=== PATIENT | male | born 1990 | race Caucasian/White ===

== ENCOUNTER 2016-10-13 16:13 | Emergency (ER) | payer OTHER ==
[~2016-10-13] VITALS: Ht 175.3 cm; Wt 68.9 kg
[~2016-10-13 16:13] MED LIST: IBUP200C62 PO; NO ROUTINE MEDS
[2016-10-13 16:17] VITALS: Ht 175.3 cm; Wt 68.9 kg
--- OUTSIDE RECORDS SUMMARY | 2016-10-13 16:17 | XMS REPORT | Continuity of Care Document ---
Author Author [facility] Organization [facility] Address Unknown Phone Unavailable Support Name Relationship Address Phone CRISPIN WING MD Caregiver [address] [place] [address] Unavailable RADHA GARCIA Next Of Kin [address] [place] [address] Insurance Providers Guarantor Gabe Foreman Address [address] [place] [address] Email DENIED/NO TO PT PORT Payer Self Pay Subscriber's Name Gabe Foreman Relationship 18 Self Chief Complaint and Reason for Visit Chief Complaint Upper Extremity Injury Reason for Visit [id number] Problems Active Problems Medical Problem Onset Date Status Concern about STD in male without diagnosis Unknown Acute Concern about STD in male without diagnosis Unknown Acute Facial pain Unknown Acute Facial pain Unknown Acute Gonorrhea Unknown Acute Sinusitis Unknown Acute Sore of penis Unknown Acute UTI (urinary tract infection) Unknown Acute Past Problems Medical Problem Onset Date Fracture, hamate Unknown Medications Current Home Medications Medication Dose Units Route Directions Days Qty Instructions Start Date Ibuprofen 200 Mg Capsule 2 Cap Oral Every 4 Hours as needed for Pain 01/12/16 No Routine Meds 10/31/15 Social History Social History Problem Response Recorded Date/Time Onset Date Status Hx Substance Use Y MARIJAUNA 01/12/2016 6:31pm Not Applicable Not Applicable Hx Alcohol Use Y WEEKLY 01/12/2016 6:31pm Not Applicable Not Applicable Tobacco Usage smoke 11/01/2015 11:51pm Not Applicable Not Applicable Query Response Start Date Stop Date Smoking Status Current every day smoker Hospital Discharge Instructions No hospital discharge instructions. Plan of Care Discharge Date 01/12/16 7:48pm Disposition 01 DISCHARGED HOME, SELF-CARE Condition at Discharge Improved Instructions/Education Provided DI for Wrist Fracture Prescriptions See Medication Section Referrals MARK PITTS Address: [facility] [address] [place] [phone] Additional Instructions/Education Keep splint in place, clean, and dry at all times Tylenol up to 1000 mg 4 times daily as needed for pain May use ice pack to the injury for pain as well See orthopedic clinic Sunday morning at 8:30 to see Mark. Care Plan and Goals Physician Care Plan Problem: Dorsal hamate fracture Goal: Follow up with primary care provider Instructions: Take medications and follow care plan as discussed/written Keep splint in place, clean, and dry at all times Tylenol up to 1000 mg 4 times daily as needed for pain May use ice pack to the injury for pain as well See orthopedic clinic Sunday morning at 8:30 to see Mark. Functional Status No functional status results. Allergies, Adverse Reactions, Alerts No known allergies. Immunizations Query Response on File Recorded Date/Time Influenza Vaccine Hx NO 01/12/16 6:31pm Tdap Vaccine Hx NO BROKEN SKIN 01/12/16 6:34pm Vital Signs Acute Vital Signs Vital Response Date/Time Temperature (Fahrenheit) 97.7 deg F (96.8 - 99.1) 01/12/2016 7:48pm Temperature (Calculated Celsius) 36.64885 degrees C (36.0 - 37.3) 01/12/2016 7:48pm Pulse Rate (adult) 95 bpm (60 - 100) 01/12/2016 7:48pm Respiratory Rate 18 breaths/min (10 - 20) 01/12/2016 7:48pm O2 Sat by Pulse Oximetry 98 % (90 - 100) 01/12/2016 7:48pm Blood Pressure 104/58 mm Hg 01/12/2016 7:48pm Height (Feet) 5 feet 01/12/2016 6:16pm Height (Inches) 10.00 inches 01/12/2016 6:16pm Weight (Kilograms) 68.000 kg 01/12/2016 6:16pm Body Mass Index (BMI) 21.0 01/12/2016 6:16pm Results Laboratory Results Test Name Result Units Flags Reference Collection Date/Time Result Date/ Time Comments N. gonorrhoeae DNA Specimen Source URINE 10/31/2015 4:13pm 2015 6:27pm Urine Collection Type VOIDED-NOT CC-MIDSTR 10/31/2015 4:13pm 2015 4:28pm Urine Color ORANGE YELLOW 10/31/2015 4:13pm 10/31/2015 4:28pm Urine Turbidity SL CLOUDY CLEAR 10/31/2015 4:13pm 10/31/2015 4:28pm Urine Specific [place] 1.025 1.015-1.025 10/31/2015 4:13pm 2015 4:28pm Urine pH 5.0 5.0-8.0 10/31/2015 4:13pm 10/31/2015 4:28pm Urine Leukocyte Esterase INCONCL DUE TO COLOR NEGATIVE 10/31/2015 4: 13pm 10/31/2015 4:28pm Urine Nitrite INCONCL DUE TO COLOR NEGATIVE 10/31/2015 4:13pm 2015 4:28pm Urine Protein INCONCL DUE TO COLOR NEGATIVE 10/31/2015 4:13pm 2015 4:28pm Urine Glucose (UA) INCONCL DUE TO COLOR NEGATIVE 10/31/2015 4:13pm 4:28pm Urine Ketones INCONCL DUE TO COLOR NEGATIVE 10/31/2015 4:13pm 2015 4:28pm Urine Urobilinogen INCONCL DUE TO COLOR EU/DL NORMAL 10/31/2015 4:13pm 10/31/2015 4:28pm Urine Bilirubin INCONCL DUE TO COLOR NEGATIVE 10/31/2015 4:13pm 10/30 4:28pm Urine Blood INCONCL DUE TO COLOR NEGATIVE 10/31/2015 4:13pm 2015 4:28pm Urine WBC 20-30 /HPF H 0-5 10/31/2015 4:13pm 10/31/2015 4:35pm Urine RBC 0-1 /HPF 0-3 10/31/2015 4:13pm 10/31/2015 4:35pm Urine Bacteria TRACE H NEGATIVE 10/31/2015 4:13pm 10/31/2015 4:35pm Procedures Procedure Status Date Provider(s) THER/PROPH/DIAG INJ SC/IM Completed 10/31/15 Encounters Encounter Location Arrival/Admit Date Discharge/Depart Date Attending Provider Departed Emergency Room [facility] 01/12/16 6:16pm 01/12/16 7: 48pm CRISPIN WING MD Departed Emergency Room [facility] 10/31/15 2:25pm 10/31/15 7: 17pm JHONATHAN TOTH MD Recent Diagnosis
--- OUTSIDE RECORDS SUMMARY | 2016-10-13 16:17 | XMS REPORT | Continuity of Care Document ---
Author Author [facility] Organization [facility] Address Unknown Phone Unavailable Support Name Relationship Address Phone ANA OLSON DO Caregiver [facility] [address] [place] [address] RADHA GARCIA Next Of Kin [address] [place] [address] Insurance Providers Payer Name Policy Number Subscriber Name Relationship Self Pay Gabe Foreman 20 Self Problems Medical Problems Problem Onset Date Status Facial pain Unknown Active Sinusitis Unknown Active Facial pain Unknown Active Concern about STD in male without diagnosis Unknown Active UTI (urinary tract infection) Unknown Active Concern about STD in male without diagnosis Unknown Active Medications Medication Dose Route Sig Days/Qty Instructions Order Date Discontinued Date Status [No Daily Meds] 03/03/14 Active Cephalexin 1 Cap PO THREE TIMES A DAY For Dysuria 10 Days 04/19/14 Active Phenazopyridine HCl 200 Mg PO AFTER MEALS For dysuria 9 Qty Take 1 tab, by mouth, 3 times a day AFTER meals. 04/19/14 Active Social History Social History Problem Response Recorded Date/Time Smoking Status Current every day smoker 04/18/2014 10:19pm When did patient START smoking? 13-14 YEARS OLD 04/18/2014 10:19pm Hx Substance Use Y MARIJAUNA 04/18/2014 10:19pm Hx Alcohol Use Y WEEKLY 04/18/2014 10:19pm Hospital Discharge Instructions No hospital discharge instructions. Plan of Care No plan of care. Functional Status Query Response Date Recorded Physical Hygiene Self April 18, 2014 10:19pm Disabilities None April 18, 2014 10:19pm Devices Used None April 18, 2014 10:19pm Dressing Self April 18, 2014 10:19pm Ambulation Self April 18, 2014 10:19pm Diet Self April 18, 2014 10:19pm Mental Status Alert Oriented April 18, 2014 10:19pm Disabilities None April 18, 2014 10:19pm Devices Used None April 18, 2014 10:19pm Physical Hygiene Self April 18, 2014 10:19pm Dressing Self April 18, 2014 10:19pm Ambulation Self April 18, 2014 10:19pm Diet Self April 18, 2014 10:19pm Allergies, Adverse Reactions, Alerts Allergen Type Severity Reaction Status Last Updated No Known Allergies Active 04/18/14 Immunizations No immunization records. Vital Signs Acute Vital Signs Vital Response Date/Time Temperature (Fahrenheit) 98.6 deg F (96.8 - 99.1) Temperature (Calculated Celsius) 37.19012 degrees C (36.0 - 37.3) Pulse Rate (adult) 101 bpm (60 - 100) Respiratory Rate 18 breaths/min (10 - 20) O2 Sat by Pulse Oximetry 99 % (90 - 100) Blood Pressure 115/67 mm Hg Height (Feet) 5 feet Height (Inches) 9 inches Weight (Kilograms) 62 kg Body Mass Index (BMI) 20.0 Results Test Source Date Result Interp. Ref. Range Comments Urine Bacteria April 18, 2014 10:32pm 1+ H - Has specimen been collected/obtained? Y Urine RBC April 18, 2014 10:32pm Tntc /HPF - Has specimen been collected/obtained? Y Urine WBC April 18, 2014 10:32pm 30-50 /HPF H - Has specimen been collected/obtained? Y Urine Blood April 18, 2014 10:32pm 3+ H - Has specimen been collected/obtained? Y Urine Bilirubin April 18, 2014 10:32pm Negative - Has specimen been collected/obtained? Y Urine Urobilinogen April 18, 2014 10:32pm 0.2 EU/DL - Has specimen been collected/obtained? Y Urine Ketones April 18, 2014 10:32pm Negative - Has specimen been collected/obtained? Y Urine Glucose (UA) April 18, 2014 10:32pm Negative - Has specimen been collected/obtained? Y Urine Protein April 18, 2014 10:32pm 1+ H - Has specimen been collected/obtained? Y Urine Nitrite April 18, 2014 10:32pm Negative - Has specimen been collected/obtained? Y Urine Leukocyte Esterase April 18, 2014 10:32pm 2+ H - Has specimen been collected/obtained? Y Urine pH April 18, 2014 10:32pm 6.0 - Has specimen been collected /obtained? Y Urine Specific [place] April 18, 2014 10:32pm >=1.030 H - Has specimen been collected/obtained? Y Urine Turbidity April 18, 2014 10:32pm Cloudy - Has specimen been collected/obtained? Y Urine Color April 18, 2014 10:32pm Red - Has specimen been collected/obtained? Y Urine Collection Type April 18, 2014 10:32pm Cleancatch-midstream - Has specimen been collected/obtained? Y Name: GABE FOREMAN Unit #: [id number] : 1990 Sex: M Loc / Svc: ED DOS: 03/03/14 Signed Report #: [id number] DIAGNOSTIC IMAGING REPORT TYPE OF EXAM: CT MAXILLOFACIAL W/O CONTRAST Dictated By: NAVID CUADRA MD INDICATION: ITS.REASON: facial pain (nose) struck in face 1 week ago ^facial pain (nose) struck in face 1 week ago COMPARISON: none. CT MAXILLOFACIAL W/O CONTRAST: Transverse, coronal, sagittal imaging. There is mucosal thickening in the sphenoid, ethmoid, maxillary sinuses that appears to be chronic sinusitis. There is nasal septal deviation. No evidence of a fracture. Mandible, zygomatic arches, and and orbits appear intact. No evidence of a nasal bone fracture. IMPRESSION: No evidence of a fracture. Evidence of chronic sinusitis. . Procedures No known history of procedures. Encounters Encounter Location Date/Time Registered Emergency Room [facility] 04/18/14 9:58pm Departed Emergency Room [facility] 03/03/14 2:07pm Recent Diagnosis
--- NOTE | 2016-10-13 16:24 | NUR ---
DR DR DEAN AT BEDSIDE.
--- OUTSIDE RECORDS SUMMARY | 2016-10-13 16:27 | XMS REPORT | Continuity of Care Document ---
Author Author [facility] Organization [facility] Address Unknown Phone Unavailable Support Name Relationship Address Phone ANA OLSON DO Caregiver [facility] [address] [place] [address] RADHA GARCIA Next Of Kin [address] [place] [address] Insurance Providers Payer Name Policy Number Subscriber [...] F (96.8 - 99.1) Temperature (Calculated Celsius) 37.69808 degrees C (36.0 - 37.3) Pulse Rate [...] specimen been collected /obtained? Y Urine Specific [place] April 18, 2014 10:32pm >=1.030 H - Has specimen been collected/obtained? Y Urine Turbidity April 18, 2014 10:32pm Cloudy - Has specimen been collected/obtained? Y Urine Color April 18, 2014 10:32pm Red - Has specimen been collected/obtained? Y Urine Collection Type April 18, 2014 10:32pm Cleancatch-midstream - Has specimen been collected/obtained? Y Name: GABE FOREMAN Unit #: [id number] : 1990 Sex: M Loc / Svc: ED DOS: 03/03/14 Signed Report #: [id number] DIAGNOSTIC IMAGING REPORT TYPE OF EXAM: CT [...] Encounters Encounter Location Date/Time Registered Emergency Room [facility] 04/18/14 9:58pm Departed Emergency Room [facility] 03/03/14 2:07pm Recent Diagnosis
--- NOTE | 2016-10-13 16:30 | NUR ---
XRY PORTABLE XRY AT BEDSIDE.
--- NOTE | 2016-10-13 16:44 | DI ---
Indication: ITS.REASON: pain, injury PROCEDURE: FOOT LEFT 3 VIEWS: Encounter: Initial Comparison: None Findings: There is no acute fracture, dislocation or malalignment identified. Impression: No acute osseous abnormality. .
--- NOTE | 2016-10-13 16:45 | DI ---
Indication: ITS.REASON: pain, injury PROCEDURE: ANKLE LEFT 3 VIEW: Encounter: Initial Comparison: None Findings: There is no acute fracture, dislocation or malalignment identified. Impression: No acute osseous abnormality. .
[2016-10-13] MEDS ORDERED: NAPR500T PO (17:05)
[2016-10-13] MEDS ORDERED: HYDR-4246 PO (17:05)
--- NOTE | 2016-10-13 17:05 | ERPDOC ---
Departure Disposition Decision Date: Oct 13, 2016 Disposition Decision Time: 17:03 Disposition: 01 DISCHARGED HOME, SELF-CARE Impression Impression Impression: Primary Impression: Sprain of foot Encounter type: initial encounter Laterality: unspecified laterality Qualified Codes: S93.609A - Unspecified sprain of unspecified foot, initial encounter Additional Impression: Ankle sprain Encounter type: initial encounter Involved ligament of ankle: unspecified ligament Laterality: unspecified laterality Qualified Codes: S93.409A - Sprain of unspecified ligament of unspecified ankle, initial encounter Severity: Mild Condition: Improved Seen By: Physician only Referrals: [facility] 2 Days Patient Instructions: Ankle Sprain (ED), Foot Sprain (ED) Problems/Meds/Labs Reviewed?: Yes Medications reviewed and manag: Yes Follow up care ordered?: Yes Mental Status: Alert, Oriented Scripts Naproxen (Naprosyn) 500 Mg Tablet 1 TAB PO BID Y for PAIN for 10 Days, #20 TAB 0 Refills Prov: JONATHAN DEAN DO 10/13/16 Hydrocodone/Acetaminophen ([place] 5-325 Tablet) 5-325 Tablet 1 TAB PO Q4HR Y for PAIN for 2 Days, #12 TAB 0 Refills Prov: JONATHAN DEAN DO 10/13/16 HPI - Lower Extremity General Chief Complaint: Lower Extremity Injury Stated Complaint: INJURED ANKLE Time Seen by Provider: 16:17 Source: patient Exam Limitations: no limitations HPI - Lower Extremity Initial Comments 26-year-old male presents to the emergency department with a chief complaint of an injury to his left foot and ankle. Injury occurred immediately prior to arrival to the emergency department today. Patient was at work when he stepped on another employees foot and twisted his foot and ankle. Patient notes a moderate dull aching pain in the left foot and ankle without radiation. Patient denies any other complaints or associated symptoms. No other injuries. Patient was at work when the symptoms began. Symptoms have been persistent in nature since onset. Patient notes that the pain increases with ambulation and improves with rest and positioning. Allergies: Coded Allergies: No Known Allergies (Unverified , 04/18/14) Past History Past Medical History Pt denies signifigant PMH Hx Echocardiogram: No Surgical History Denies Surgeries Family History Family History: Negative Family PMH: FOUND: other Social History Smoking Status: Current some day smoker Substance Use Type: does not use Alcohol Intake: none Sexuality: female partner Review of Systems Constitutional Constitutional: DENIES: chills, fever Eyes General: DENIES: erythema, exudate Lids/Accessories: DENIES: erythema, swelling Vision: DENIES: acuity, blurring ENMT Ears: DENIES: drainage, erythema Hearing: DENIES: hearing loss Balance: DENIES: ataxia, falling to one side Sinuses: DENIES: congestion, pain Nose: DENIES: nosebleeds, pain Mouth/Throat: DENIES: painful swallowing, sore throat Teeth: DENIES: pain Jaw: DENIES: pain Cardiovascular Cardiac: DENIES: chest pain, dyspnea on exertion Rhythm/Rate: DENIES: irregular beat, palpitations Vascular: DENIES: pedal edema, unilateral swelling Pulmonary Respiratory: DENIES: cough, dyspnea, pleuritic chest pain, sputum GI Upper Abdomen: DENIES: nausea, pain, vomiting Lower Abdomen: DENIES: diarrhea, pain General: DENIES: dysuria, pain Musculoskeletal General: joint pain, tenderness Neurological General: DENIES: headache, numbness, weakness Psychiatric Psychiatric: DENIES: emotional instability, suicidal ideation/attempt Endocrine Endocrine: DENIES: polydipsia, polyphagia Hematologic/Lymphatic Hematologic/Lymphatic: DENIES: frequent nosebleeds, lymphadenopathy Allergic/Immunological Allergic/Immunoligical: DENIES: allergic reactions, hives Physical Exam General General Nourishment: well nourished, well developed, appears stated age, no acute distress, adult General Body Habitus: well groomed Vitals and Pain First Documented Vital Signs Date Time Temp Pulse Resp B/P Pulse Ox O2 Delivery O2 Flow Rate FiO2 10/13/16 16:17 98.1 88 16 135/90 99 Room Air Weight: Kilograms: 68.900 Height (feet): 5 Height (inches): 9.00 Triage Pain Scale: RN VS reviewed by Provider: Yes Normal Exams: Head: Normocephalic w/o trauma Eyes: Pupils are PERRLA w/ EOMI, No scleral icterus, irritation, or foreign bodies noted ENMT: No facial trauma, nasal exudates, pharyngeal erythema, or exudates are noted Dental: No fractured, loose, or missing teeth noted Neck: Full range of motion, without adenopathy, JVD, bruits or thyromegaly Chest/Resp: Clear all ariza, with good airflow, and symmetry bilaterally CV: Regular rate and rhythm, without murmur or gallop, Pulses 2+ all extremities, capillary refill, <2 seconds all ext., no pedal edema noted Abdomen: Bowel sounds positive, soft, non-tender, non-distended, no hepatosplenomegaly, masses or bruits noted Lymphatic: No lymphadenopathy, or lymphedema noted Integumentary: No rashes, hives, or bruising noted, hair and nails, without abnormality Neurologic: Patient is alert, and oriented, cranial nerves, motor/sensory/ cerebellar, exams w/o gross deficits, to observation Psychiatric: Patient exhibits, appropriate attention, emotion and affect Musculoskeletal (brief) Comments Left lower extremity - diffusely tender to palpation over the lateral foot. Pulses intact. Sensation intact. Capillary refill less than 2. Full range of motion. No other tenderness in the left lower extremity. No fibular head tenderness. No erythema. Slight edema. All other extremities are unremarkable. Differential Diagnoses Considering: Contusion, Fracture, Sprain, Strain Procedures Splinting Procedure Splint : Site: left lower extremity Pre-placement NV: FOUND: cap refill < 3 sec, good movement, good sensation Hand-Made Type: orthoglass Splint: short leg posterior Post-placement NV: FOUND: cap refill < 3 sec, good movement, good sensation Applied by: MD/DO Comments Short leg posterior splint was applied with good alignment to the left lower extremity by myself. Patient was distal neurovascular intact post-application of splint. Progress Results/Orders Orders Procedure Category Date Status Time Foot Left 3 Views RAD 10/13/16 Resulted 16:26 Ankle Left 3 View RAD 10/13/16 Resulted 16:26 Naproxen (Naprosyn PHA 10/13/16 Complete 500mg) 17:15 Medications Current ED Medications Naproxen (NAPROSYN 500mg) 500 mg O ONCE PO Last administered on 10/13/16t 17: 29; Start 10/13/16 at 17:15; Stop 10/13/16 at 17:16; Status DC Progress Progress Imaging is discussed in detail with the patient and questions are answered. Patient is given analgesic pain medication with improvement of symptoms in the emergency Department. Patient is placed in a short-leg posterior splint the left lower extremity with good alignment by myself. Patient is distal neurovascular intact post-application of splint. Patient is provided with crutches and education the use. Patient is discharged home in improved condition. Patient to follow up as instructed. Patient is to return to the emergency department if his condition worsens or changes in any manner. Patient is in agreement with the current plan of management. Patient is to follow up as instructed. Xray Xray : Xray: Foot L Interpretation: Normal, Interpreted by Me (left ankle: Negative), Reviewed Written Report JONATHAN DEAN DO Oct 13, 2016 17:05
--- NOTE | 2016-10-13 17:10 | NUR ---
DR DR DEAN AT BEDSIDE.
[2016-10-13] MEDS ORDERED: NAPROXEN 500 MG TABLET PO ONE (17:15)
[2016-10-13 17:24] VITALS: BP 114/67; PULSE 76; RESP 16; TEMP 98.3; O2SAT 97
== END 2016-10-13 17:30 | disposition home or self-care (01) ==
LOC: ED 16:13
DX: S93.602A Unspecified sprain of left foot, initial encounter (principal); S93.402A Sprain of unspecified ligament of left ankle, initial encounter; X50.1XXA Overexertion from prolonged static or awkward postures, initial encounter; Y93.89 Activity, other specified; Y92.9 Unspecified place or not applicable; Y99.0 Civilian activity done for income or pay